=== PATIENT | female | born 1935 | race Caucasian/White ===

== ENCOUNTER 2017-08-08 12:50 | Outpatient (CLI) | payer MEDICARE ==
[2017-08-08 15:05] VITALS: BP 150/70; BMI 24.0
--- NOTE | 2017-08-08 15:15 | NUR ---
SOAP SUDS ENEMA BEGUN.
--- NOTE | 2017-08-08 15:30 | NUR ---
PT UP TO BR,PASSED BROWN LIQUID BM, A FEW SMALL CLUMPS OF FORMED STOOL.
--- NOTE | 2017-08-08 16:00 | NUR ---
ENEMAS CONTINUE. PT CONTINUES TO PASS BROWN WATER WITH SMALL CLUMPS.
--- NOTE | 2017-08-08 16:25 | NUR ---
PT COMES TO DESK, DRESSED, STATES SHE IS READY TO LEAVE.
== END 2017-08-08 17:30 | disposition home or self-care (01) ==
LOC: D.OPS 12:50
DX: K59.09 Other constipation (principal)

== ENCOUNTER → 2017-08-11 09:56 | Outpatient (CLI) | payer MEDICARE ==
[2017-08-08 15:05] VITALS: BMI 24.0
== END | disposition home or self-care (01) ==
LOC: D.RAD 09:56
DX: R15.2 Fecal urgency (principal)